=== PATIENT | male | born 1970 | race Caucasian/White ===

== ENCOUNTER 2018-02-26 22:19 | Emergency (ER) | payer SELFPAY ==
[~2018-02-26] VITALS: Ht 180.3 cm; Wt 100.1 kg
[2018-02-26 22:21] VITALS: BP 135/87
== END 2018-02-26 23:44 | disposition home or self-care (01) ==
LOC: ED 23:05
DX: R00.2 Palpitations (principal); F12.10 Cannabis abuse, uncomplicated
CPT/HCPCS: 93005; 99283

== ENCOUNTER 2019-04-02 02:38 | Inpatient (IN) | payer SELFPAY ==
[~2019-04-02] VITALS: Ht 180.3 cm; Wt 98.0 kg
[2019-04-02] MEDS ORDERED: CLON0.25 PO (02:46)
--- NOTE | 2019-04-02 03:00 | NUR ---
PT PRESENTS TO ED WITH PALPITATIONS AND ANXIETY. PT FOUND TO BE IN ATRIAL FIBRILLATION WITH HR IN THE 150'S, WHICH IS DIFFERENT FROM TRIAGE VITALS. PT CHANGED INTO GOWN IN [facility]. IV ACCESS OBTAINED AND BLOOD COLLECTED AND SENT TO LAB. ERP NOTIFIED OF PT CONDITION. 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 PT EDUCATED ON ER PROCESS AND VERBALIZES UNDERSTANDING. PT HAS CALL LIGHT WITHIN REACH AT THIS TIME. EKG DONE AT BS. AWAITING NEW ORDERS AT THIS TIME.
[2019-04-02] MEDS ORDERED: ASPIRIN 81 MG TABLET CHEW PO ONE (03:30)
[2019-04-02] MEDS ORDERED: SODIUM CHLORIDE FLUSH 10ML SYR IVF ONE (03:30)
[2019-04-02] MEDS ORDERED: DILTIAZEM 5 MG/ML, 5ML ONE (03:31)
[2019-04-02 03:32] LABS: BASOPHILS # (AUTO) 0.05 x10^3/uL (0-0.1); BASOPHILS % (AUTO) 1 % (0-1); EOSINOPHILS # (AUTO) 0.38 x10^3/uL (0-0.4); EOSINOPHILS % (AUTO) 6 % (1-7); LYMPHOCYTES # (AUTO) 2.32 x10^3/uL (1-3.4); LYMPHOCYTES % (AUTO) 34 % (22-44); MD NO; MEAN CORPUSCULAR HEMOGLOBIN 31.5 pg (27.5-34.5); MEAN CORPUSCULAR HGB CONC 33.7 g/dL (33.2-36.2); MEAN CORPUSCULAR VOLUME 93.6 fL (81-97); MEAN PLATELET VOLUME 7.8 fL (7.4-10.4); MONOCYTES # (AUTO) 0.62 x10^3/uL (0.2-0.8); MONOCYTES % (AUTO) 9 % (2-9); NEUTROPHILS % (AUTO) 50 % (42-75); PLATELET COUNT 336 x10^3/uL (130-400); RED CELL DISTRIBUTION WIDTH 12.8 % (9.4-14.8)
[2019-04-02] MEDS ORDERED: ASPIRIN 81 MG TABLET CHEW ONE (03:40)
[2019-04-02 03:45] LABS: ALANINE AMINOTRANSFERASE 54 U/L (12-78); ANION GAP 9 mmol/L (5-15); CALCIUM 8.8 mg/dL (8.5-10.1); CHLORIDE 107 mmol/L (98-107); CREATININE 0.89 mg/dL (0.7-1.3)
[2019-04-02 03:49] LABS: ALKALINE PHOSPHATASE 64 U/L (45-117); BILIRUBIN,TOTAL 0.3 mg/dL (0.2-1.0); TOTAL PROTEIN 7.7 g/dL (6.4-8.2); TROPONIN I < 0.015 ng/mL (0.000-0.045)
[2019-04-02] MEDS ORDERED: DILTIAZEM 5 MG/ML, 5ML IVPush ONE ×3 (04:00→04:30)
--- NOTE | 2019-04-02 04:08 | NUR ---
PT RESPONSIVE TO MEDICATIONS, AND AFIB RATE CONTROLLED AT THIS TIME. DR. PETERSON UPDATED ON STABLE VS. AWAITING PT DISPOSITION AT THIS TIME.
--- NOTE | 2019-04-02 04:55 | NUR ---
WHILE IN PT ROOM UPDATING VS, IT APPEARS THAT PT CONVERTED FROM AFIB BACK INTO NORMAL SR. ERP NOTIFIED FOR REPEAT EKG ORDERS. AWAITING EKG RESULTS AT THIS TIME. PT RESTING COMFORTABLY IN [place]; SERGIO. PT HAS CALL LIGHT WITHIN REACH.
--- NOTE | 2019-04-02 05:28 | NUR ---
HOSPITAL BED REQUESTED AT THIS TIME. HOUSEKEEPING IS UNABLE TO LOCATE AN EXTRA BED. WILL CONTINUE TO ATTEMPT [place] [facility] [place]
[2019-04-02] MEDS ORDERED: DILTIAZEM 5 MG/ML, 5ML IVPush PRN (06:00)
[2019-04-02] MEDS ORDERED: ACETAMINOPHEN 325 MG TABLET PO PRN (06:00)
[2019-04-02] MEDS ORDERED: ASPIRIN 325 MG TABLET EC PO SCH (06:00)
[2019-04-02] MEDS ORDERED: ASPIRIN 325 MG TABLET EC ONE ×2 (06:22→07:47)
--- NOTE | 2019-04-02 06:53 | NUR ---
MED ORDERED FROM PHARMACY.
[2019-04-02 07:00] LABS: CHOL/HDL RATIO 6.7; CHOLESTEROL, TOTAL 322 mg/dL (140-239); HDL CHOL % 15 % (26-37); HDL CHOLESTEROL (DIRECT) 48 mg/dL (40-60); TRIGLYCERIDES 430 mg/dL (50-200)
--- NOTE | 2019-04-02 07:03 | NUR ---
REPORT RECEIVED FROM TORY SUGGS. CARE ASSUMED. MED REC COMPLETED.
[2019-04-02] MEDS: POTASSIUM CHLORIDE 20 MEQ, MAGNESIUM SULFATE 2 GM, THIAMINE 200 MG, MVI ADULT 10 ML, FO... IV SCH ×2 (07:55→08:12)
--- NOTE | 2019-04-02 07:56 | NUR ---
cardia rhythm strip printed and put on chart
--- NOTE | 2019-04-02 08:04 | NUR ---
PT MEDICATED PER ORDER.
--- NOTE | 2019-04-02 08:11 | NUR ---
TRAY GIVEN TO PT.
--- NOTE | 2019-04-02 12:09 | NUR ---
BREAK RN FOR PRIMARY RN INGRIS. REPORT RECEIVED, CARE ASSUMED. PT RESTING IN POSITION OF COMFORT WATCHING TV. DENIES ANY PAIN AND NEED TO USE RESTROOM. PROVIDED WATER PER REQUEST AND MD PLATA, TOLERATING PO WELL. A&OX4. VSS, SR ON MONITOR. FALL PRECAUTIONS IN PLACE. SIDE RAILS UP. ALL NEEDS MET AND ADDRESSED. PT REMAINS TELE HOLD, AWAITING ROOM ASSIGNMENT ON FLOOR. CALL LIGHT IN REACH. FALL PRECAUTIONS IN PLACE.
--- NOTE | 2019-04-02 12:21 | NUR ---
BREAK RN. BEDSIDE REPORT AND CARE BACK TO PRIMARY RN INGRIS.
--- NOTE | 2019-04-02 13:14 | NUR ---
REPORT GIVEN TO TORY RAMIREZ.
--- NOTE | 2019-04-02 13:26 | NUR ---
RECEIVED REPORT FROM INGRIS SPEARS AND [facility]
--- NOTE | 2019-04-02 14:25 | NUR ---
UOB AND AMBULATED AROUND ER WITH PULSE OX. HR 85-92. UPON RETURN TO BED PLACED ON HEART MONITOR AND PT NSR. NO C/O PALPITATIONS OR SOB
--- NOTE | 2019-04-02 14:29 | NUR ---
MD CRAFT MADE AWARE OF ROAD TEST RESULTS.
[2019-04-02] MEDS ORDERED: METO25TA35 PO (15:34)
[2019-04-02] MEDS ORDERED: ASPI-515 PO (15:34)
[2019-04-02 16:00] VITALS: BP 138/74
--- NOTE | 2019-04-02 17:38 | NUR ---
PT GIVEN DISCHARGE INSTRUCTIONS BY D/C [facility] STAFF. PT AMBULATED TO DISCHARGE WINDOW, STEADY GAIT
[2019-04-02] MEDS ORDERED: METOPROLOL TARTRATE 25 MG TABLET PO SCH (18:00)
[2019-04-02] MEDS ORDERED: METOPROLOL TARTRATE 50 MG TABLET PO SCH (18:00)
== END 2019-04-03 17:25 | disposition home or self-care (01) | DRG 310 ==
LOC: ED 03:53 → EDIP 04:14
PROVIDERS: ADMIT Family Medicine; ATTEND Internal Medicine
DX: I48.0 Paroxysmal atrial fibrillation (principal); F10.10 Alcohol abuse, uncomplicated; F41.9 Anxiety disorder, unspecified; I10 Essential (primary) hypertension; Z80.8 Family history of malignant neoplasm of other organs or systems; Z71.41 Alcohol abuse counseling and surveillance of alcoholic
CPT/HCPCS: 36415; 96374; 96376; 99291; J7042; 71045; 80053; 80061; 80307; 84443; 84484; 85025; 93005; 93306; 93356; J3411; J3475; J3480

== ENCOUNTER 2019-05-18 19:17 | Emergency (ER) | payer SELFPAY ==
[~2019-05-18] VITALS: Ht 182.9 cm; Wt 100.6 kg
[~2019-05-18 19:17] MED LIST: ASPI-515 PO; CLON0.25 PO; METO25TA35 PO
[2019-05-18] MEDS ORDERED: SODIUM CHLORIDE 0.9% 1,000ML IVBOLUS ONE (20:30)
[2019-05-18 20:39] LABS: BASOPHILS # (AUTO) 0.04 x10^3/uL (0-0.1); BASOPHILS % (AUTO) 0 % (0-1); EOSINOPHILS # (AUTO) 0.04 x10^3/uL (0-0.4); EOSINOPHILS % (AUTO) 0 % (1-7); LYMPHOCYTES # (AUTO) 1.01 x10^3/uL (1-3.4); LYMPHOCYTES % (AUTO) 8 % (22-44); MD NO; MEAN CORPUSCULAR HEMOGLOBIN 31.4 pg (27.5-34.5); MEAN CORPUSCULAR HGB CONC 34.2 g/dL (33.2-36.2); MEAN CORPUSCULAR VOLUME 91.9 fL (81-97); MEAN PLATELET VOLUME 8.9 fL (7.4-10.4); MONOCYTES # (AUTO) 0.96 x10^3/uL (0.2-0.8); MONOCYTES % (AUTO) 8 % (2-9); NEUTROPHILS # (AUTO) 10.01 x10^3/uL (1.8-6.8); NEUTROPHILS % (AUTO) 83 % (42-75); PLATELET COUNT 285 x10^3/uL (130-400); RED BLOOD COUNT 4.49 x10^6/uL (4.38-5.82); RED CELL DISTRIBUTION WIDTH 12.1 % (9.4-14.8)
[2019-05-18 20:46] LABS: ALBUMIN 3.9 g/dL (3.4-5.0); ANION GAP 8 mmol/L (5-15); CALCIUM 8.8 mg/dL (8.5-10.1); CHLORIDE 104 mmol/L (98-107); CREATININE 0.96 mg/dL (0.7-1.3)
[2019-05-18 20:50] LABS: TROPONIN I < 0.015 ng/mL (0.000-0.045)
[2019-05-18 21:08] VITALS: BP 130/75
== END 2019-05-18 21:53 | disposition home or self-care (01) ==
LOC: ED 20:58
DX: R00.2 Palpitations (principal); I48.91 Unspecified atrial fibrillation
CPT/HCPCS: 36415; 80048; 82040; 84484; 85025; 93005; 99284; J7030

== ENCOUNTER 2020-02-09 22:58 | Emergency (ER) | payer OTHER ==
[~2020-02-09] VITALS: Ht 180.3 cm; Wt 99.0 kg
[2020-02-09 23:43] LABS: BASOPHILS % (AUTO) 1 % (0-1); EOSINOPHILS % (AUTO) 4 % (1-7); LYMPHOCYTES % (AUTO) 28 % (22-44); MEAN CORPUSCULAR HEMOGLOBIN 31.6 pg (27.5-34.5); MEAN CORPUSCULAR HGB CONC 33.6 g/dL (33.2-36.2); MEAN PLATELET VOLUME 8.3 fL (7.4-10.4); MONOCYTES % (AUTO) 9 % (2-9); NEUTROPHILS % (AUTO) 58 % (42-75); PLATELET COUNT 266 x10^3/uL (130-400); RED BLOOD COUNT 4.57 x10^6/uL (4.38-5.82); RED CELL DISTRIBUTION WIDTH 12.4 % (9.4-14.8)
[2020-02-09 23:44] LABS: MD NO
[2020-02-09 23:51] LABS: ALANINE AMINOTRANSFERASE 56 U/L (12-78); ANION GAP 7 mmol/L (5-15); CALCIUM 8.5 mg/dL (8.5-10.1); CHLORIDE 104 mmol/L (98-107); CREATININE 0.95 mg/dL (0.7-1.3)
[2020-02-09 23:58] VITALS: BP 145/92
[2020-02-10 00:02] LABS: ALKALINE PHOSPHATASE 58 U/L (45-117); BILIRUBIN,TOTAL 0.3 mg/dL (0.2-1.0); T4 (THYROXINE) 6.9 mcg/dL (4.5-12.1); TOTAL PROTEIN 7.6 g/dL (6.4-8.2); TROPONIN I < 0.015 ng/mL (0.000-0.045)
== END 2020-02-10 00:30 | disposition home or self-care (01) ==
LOC: ED 23:54
DX: G89.11 Acute pain due to trauma (principal); M25.531 Pain in right wrist; I10 Essential (primary) hypertension; I48.91 Unspecified atrial fibrillation; R00.2 Palpitations; I49.9 Cardiac arrhythmia, unspecified
CPT/HCPCS: 36415; 80053; 83735; 83880; 84436; 84443; 84484; 85025; 93005; 99285